=== PATIENT | female | born 1990 | race African-American/Black ===

== ENCOUNTER 2017-11-27 00:11 | Emergency (ER) | payer MEDICAID ==
[~2017-11-27] VITALS: Ht 165.1 cm; Wt 85.7 kg
[~2017-11-27 00:11] MED LIST: AMOX500C25 PO; TYL3 PO
[2017-11-27 00:23] VITALS: BP 129/76
--- NOTE | 2017-11-27 00:26 | NUR ---
TO LOBBY A/W BED, AMBULATORY, VSS , ANDREW NOTED
[2017-11-27 00:27] VITALS: BP 129/76
--- NOTE | 2017-11-27 02:45 | NUR ---
PATIENT LEFT WITHOUT BEING SEEN BY DR. TORREZ. NO FURTHER CARE PROVIDED FOR PATIENT.
== END 2017-11-27 02:45 | disposition left against medical advice (07) ==
LOC: MED 00:11
DX: R51 Headache (principal); Z53.21 Procedure and treatment not carried out due to patient leaving prior to being seen by health care provider

== ENCOUNTER 2018-03-23 22:13 | Emergency (ER) | payer MEDICAID, OTHER ==
[~2018-03-23] VITALS: Ht 165.1 cm; Wt 81.6 kg
[2018-03-23 22:20] VITALS: BP 125/76
--- NOTE | 2018-03-23 22:20 | NUR ---
PT PRESENTS TO ED WITH BILAT LOWER ABD/SUPRAPUBIC ABD CRAMPING, 6/10 PAIN. PT STATES SPOTTING WHEN WIPING AFTER URINATING. PT DENIES SOAKING PADS AND NO VAGINAL DISCHARGE. A&OX4. VSS. POSITIONED IN BED FOR COMFORT. ER MD AWARE. CONTINUE TO MONITOR.
--- NOTE | 2018-03-23 22:20 | NUR ---
TO BED # 3 AMB, REPORT GIVEN TO SAE BALDERAS
--- NOTE | 2018-03-23 22:45 | NUR ---
OB AT BEDSIDE FOR HEART TONES. FHT BREIFLEY HEARD BUT UNABLE TO RESTABLISH.
--- NOTE | 2018-03-23 22:48 | NUR ---
PT TAKEN TO ULTRASOUND
--- NOTE | 2018-03-23 22:50 | NUR ---
PT TAKEN TO US WITH VSS. ESCORTED VIA WHEEL CHAIR.
[2018-03-23 22:52] LABS: BASOPHILS % (AUTO) 0.3 % (0.0-2.0); EOSINOPHILS # (AUTO) 0.4 K/uL (0-0.4); EOSINOPHILS % (AUTO) 3.4 % (0.0-4.0); HEMATOCRIT 34.3 % (36-48); HEMOGLOBIN 10.7 g/dL (12.0-16.0); LYMPHOCYTES # (AUTO) 1.7 K/uL (2.5-16.5); MEAN CORPUSCULAR HEMOGLOBIN 23 pg (27-31); MEAN CORPUSCULAR HGB CONC 31 g/dL (33-37); MEAN CORPUSCULAR VOLUME 72.6 fL (80-94); MONOCYTES % (AUTO) 8.1 % (1.7-9.3); NEUTROPHILS # (AUTO) 9.2 K/uL (1.8-7.7); NEUTROPHILS % (AUTO) 74.2 % (42.2-75.2); PLATELET COUNT (AUTO) 226 K/uL (140-450); RED BLOOD CELL COUNT(AUTO) 4.72 MIL/uL (4.20-5.40); WHITE BLOOD COUNT (AUTO) 12.4 K/uL (4.8-10.8)
[2018-03-23 23:03] LABS: RED CELL DISTRIBUTION WIDTH 21.9 % (11.6-13.7)
[2018-03-23 23:32] LABS: APPEARANCE,URINE SL CLOUDY (CLEAR); BILIRUBIN,URINE NEGATIVE (NEGATIVE); BLOOD, URINE NEGATIVE (NEGATIVE); COLOR,URINE YELLOW (YELLOW); LEUKOCYTE ESTERASE ,URINE NEGATIVE (NEGATIVE); NITRITE, URINE NEGATIVE (NEGATIVE); UGLUCOSE NEGATIVE (NEGATIVE)
--- NOTE | 2018-03-23 23:46 | NUR ---
Dr. Ag evaluating patient at bedside.
[2018-03-24 00:07] VITALS: BP 125/76
--- NOTE | 2018-03-24 00:07 | NUR ---
Patient discharged with v/s stable. Written and verbal after care instructions given and explained. Patient alert, oriented and verbalized understanding of instructions. Ambulatory with steady gait. All questions addressed prior to discharge. ID band removed. Patient advised to follow up with PMD. Patient educated on indication of medication including possible reaction and side effects. Opportunity to ask questions provided and answered.
== END 2018-03-24 00:07 | disposition home or self-care (01) ==
LOC: MED 22:13
DX: O20.0 Threatened abortion (principal); Z3A.08 8 weeks gestation of pregnancy; Z79.899 Other long term (current) drug therapy; Z79.1 Long term (current) use of non-steroidal anti-inflammatories (NSAID)
CPT/HCPCS: 36415; 76815; 81003; 81025; 84702; 85025; 86900; 86901; 99284; Q0092

== ENCOUNTER 2018-08-01 14:00 | Observation (INO) | payer OTHER ==
[~2018-08-01] VITALS: Ht 165.1 cm; Wt 90.7 kg
[2018-08-01] MEDS ORDERED: [UNRECOGNIZED DRUG - CODE] PO (14:28)
[2018-08-01 17:20] LABS: APPEARANCE,URINE CLEAR (CLEAR); BILIRUBIN,URINE NEGATIVE (NEGATIVE); BLOOD, URINE TRACE-I (NEGATIVE); COLOR,URINE YELLOW (YELLOW); LEUKOCYTE ESTERASE ,URINE NEGATIVE (NEGATIVE); NITRITE, URINE NEGATIVE (NEGATIVE); UGLUCOSE NEGATIVE (NEGATIVE)
== END 2018-08-01 16:35 | disposition left against medical advice (07) ==
LOC: MLD 14:00
PROVIDERS: ADMIT Obstetrics & Gynecology; ATTEND Obstetrics & Gynecology
DX: O26.892 Other specified pregnancy related conditions, second trimester (principal); R10.9 Unspecified abdominal pain; Z3A.27 27 weeks gestation of pregnancy
CPT/HCPCS: 76805; 81003; C1758; G0378; Q0092

== ENCOUNTER 2019-04-20 15:07 | Emergency (ER) | payer OTHER ==
[~2019-04-20] VITALS: Ht 165.1 cm; Wt 83.9 kg
[~2019-04-20 15:07] MED LIST changes: +ACET-503 PO; -TYL3 PO; +[UNRECOGNIZED DRUG - CODE] PO
[2019-04-20 15:58] VITALS: BP 126/51
--- NOTE | 2019-04-20 16:28 | NUR ---
28/F C/O NASAL CONGESTION, BODY ACHES, CHILLS X 2 DAYS. DAUGHTER RECENTLY DX WITH INFLUENZA. NO N/V/D HX- DENIES
--- NOTE | 2019-04-20 16:42 | NUR ---
Patient discharged with v/s stable. Written and verbal after care instructions given and explained. Patient alert, oriented and verbalized understanding of instructions. Ambulatory with steady gait. All questions addressed prior to discharge. ID band removed. Patient advised to follow up with PMD. Rx of TAMIFLU, FLONASE, PROMETHAZINE, ACETAMINOPHEN given. Patient educated on indication of medication including possible reaction and side effects. Opportunity to ask questions provided and answered.
[2019-04-20 16:55] VITALS: BP 126/51
== END 2019-04-20 16:42 | disposition home or self-care (01) ==
LOC: MED 15:07
DX: B34.9 Viral infection, unspecified (principal); Z79.899 Other long term (current) drug therapy; Z79.2 Long term (current) use of antibiotics; Z79.891 Long term (current) use of opiate analgesic
CPT/HCPCS: 99283

== ENCOUNTER 2021-07-02 12:21 | Emergency (ER) | payer OTHER ==
[~2021-07-02] VITALS: Ht 165.1 cm; Wt 112.0 kg
[2021-07-02 12:23] VITALS: BP 135/81
--- NOTE | 2021-07-02 12:50 | NUR ---
Ultrasound at bedside
--- NOTE | 2021-07-02 13:07 | NUR ---
30 Y/O FEMALE BIB SELF DUE TO LEFT LOWER EXTREMITY SWELLING 2 WEEKS. PT DENIES ANY TRAUMA. 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 NO REDNESS NOTED. PMH: DENIES NKA
[2021-07-02 13:33] VITALS: BP 135/81
--- NOTE | 2021-07-02 13:33 | NUR ---
Patient discharged with v/s stable. Written and verbal after care instructions given and explained. Patient alert, oriented and verbalized understanding of instructions. Ambulatory with steady gait. All questions addressed prior to discharge. ID band removed. Patient advised to follow up with PMD. Opportunity to ask questions provided and answered.
== END 2021-07-02 13:33 | disposition home or self-care (01) ==
LOC: MED 12:21
DX: R60.0 Localized edema (principal); Z79.899 Other long term (current) drug therapy
CPT/HCPCS: 81002; 81025; 93971; 99284; Q0092

== ENCOUNTER 2021-12-02 10:59 | Emergency (ER) | payer OTHER ==
[~2021-12-02] VITALS: Ht 165.1 cm; Wt 112.5 kg
[2021-12-02 11:12] VITALS: BP 124/61
--- NOTE | 2021-12-02 11:31 | NUR ---
CALLED, NO ANSWER
--- NOTE | 2021-12-02 12:33 | NUR ---
BIB SELF C/O L ANKLE SWELLING X 7 MONTHS. DENIES TRAUMA/INJURY.
--- NOTE | 2021-12-02 13:39 | NUR ---
PT AMB TO ER BED 12
[2021-12-02 14:02] VITALS: BP 126/74
--- NOTE | 2021-12-02 14:04 | NUR ---
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 erpa notified of patient request. patient left without dc paperwork in steady gait
== END 2021-12-02 14:10 | disposition left against medical advice (07) ==
LOC: MED 10:59
DX: M25.472 Effusion, left ankle (principal); Z79.899 Other long term (current) drug therapy
CPT/HCPCS: 73610; 73630; 99284